=== PATIENT | male | born 1935 | race Two or more races ===

== ENCOUNTER 2024-10-24 16:29 | Emergency (ER) | payer BC, OTHER ==
[~2024-10-24] VITALS: Ht 162.6 cm; Wt 59.0 kg
--- NOTE | 2024-10-24 16:39 | ECG ---
[facility] Test Date: 2024-10-24 Test Time: 16:37:27 Pat Name: MISSY PENNY Department: ED Room: Gender: M Hematology Specialist: titus : [id number] Requested By: TRISHA HOU Order Number: [id number] Reading MD: Missy Alba Measurements Intervals [place] Rate: 41 P: 0 MD: 0 QRS: 70 QRSD: 165 T: 8 QT: 550 QTc: 455 Interpretive Statements Atrial fibrillation Right bundle branch block Inferior infarct, old Electronically Signed On 10-25-2024 12:16:58 PDT by Missy Alba Please click the below link to view image of tracing.
[2024-10-24 16:57] LABS: Basophils # (auto) 0 10 ^3/uL (0-0.2); Basophils % (auto) 0.5 % (0.0-2.0); Eosinophils # (auto) 0.1 10 ^3/uL (0-0.8); Eosinophils % (auto) 1.8 % (0.0-7.0); Hematocrit 25.4 % (41.0-53.0); Hemoglobin 8.2 g/dL (13.5-17.5); Lymphocytes # (auto) 1.2 10 ^3/uL (0.4-5.4); Lymphocytes % (auto) 24.6 % (10.0-50.0); Mean Corpuscular Hemoglobin 30.5 pg (28.0-32.0); Mean Corpuscular Hgb Conc. 32.4 g/dL (32.0-36.0); Mean Corpuscular Volume 94.1 fL (80.0-100.0); Monocytes # (auto) 0.6 10 ^3/uL (0-1.3); Monocytes % (auto) 11.7 % (0.0-12.0); Neutrophils # (auto) 2.9 10 ^3/uL (1.6-8.6); Neutrophils % (auto) 61.4 % (37.0-80.0); Platelet Count (auto) 257 10^3/uL (140-450); Red Cell Distribution Width 17.8 % (11.8-14.3); White Blood Cell 4.7 10^3/uL (4.4-10.8)
--- NOTE | 2024-10-24 16:58 | ED.PDOC ---
History of Present Illness HPI Comments 88 y.o male with PMHx of CAD, CT, HTN, hyperlipidemia, presents to the ED via EMS for an evaluation of generalized weakness. Patient reports initial weakness presented 2-3 months ago but for the past week has progressively worsened with new onset of SOB x 2-3 days. Patient mentions he had a fall one week ago, was seen at the ED yesterday in which staff found a lump on his left hip. Patient was discharged but was unsure of his diagnose then. Patient denies any nausea, vomiting, chest pain, Palpitations, recent falls. EMS reports HR read at 38, normally sits between 46-52. Patient was given IV fluids due to pale appearance on scene. Patient denies any social history. Chief Complaint: General Weakness Time Seen by MD: 16:29 Primary Care Provider: ML Peres Notes: Nurses Notes, Keyboard Teacher Notes, Medications, Allergies Allergies: Coded Allergies: NO KNOWN ALLERGIES (Unverified , 06/19/13) Information Source: Patient, Emergency Med Personnel Mode of Arrival: EMS Severity: Moderate Timing: Weeks (1) Duration: Since onset Past Medical History PAST MEDICAL HISTORY: CAD, High Lipids, HTN, CT Surgical History: Appendectomy Family History Family History: No family hx of Cancer, No family hx ofKidney lindsay Social History Smoker: Other Alcohol: Occasionally Drugs: Denies Drug Use Lives In: Home Constitutional: reports: weakness; denies: chills, diaphoresis, fatigue, fever, malaise, sweats, others EENTM: denies: blurred vision, double vision, ear bleeding, ear discharge, ear drainage, ear pain, ear ringing, eye pain, eye redness, hearing loss, mouth pain, mouth swelling, nasal discharge, nose bleeding, nose congestion, nose pain, photophobia, tearing, throat pain, throat swelling, voice changes, others Respiratory: reports: SOB at rest, shortness of breath, SOB with excertion; denies: cough, hemoptysis, orthopnea, stridor, wheezing, others Cardiovascular: denies: chest pain, dizzy spells, diaphoresis, Dyspnea on exertion, edema, irregular heart beat, left arm pain, lightheadedness, palpitations, PND, syncope, others Gastrointestinal: denies: abdomen distended, abdominal pain, blood streaked bowels, constipated, diarrhea, dysphagia, difficulty swallowing, hematemesis, melena, nausea, poor appetite, poor fluid intake, rectal bleeding, rectal pain, vomiting, others Genitourinary: denies: burning, dysuria, flank pain, frequency, hematuria, incontinence, penile discharge, penile sore, pain, testicle pain, testicle swelling, urgency, others Neurological: denies: dizziness, fainting, headache, left sided numbness, left sided weakness, numbness, paresthesia, pre-existing deficit, right sided numbness, right sided weakness, seizure, speech problems, tingling, tremors, weakness, others Musculoskeletal: denies: back pain, gout, joint pain, joint swelling, muscle pain, muscle stiffness, neck pain, others Integumetry: denies: bruises, change in color, change in hair/nails, dryness, laceration, lesions, lumps, rash, wounds, others Allergic/Immunocompromised: denies: Difficulty Healing, Frequent Infections, Hives, Itching, others Hematologic/Lymphatic: denies: anemia, blood clots, easy bleeding, easy bruising, swollen glands, others Endocrine: denies: excessive hunger, excessive sweating, excessive thirst, excessive urination, flushing, intolerance to cold, intolerance to heat, unexplained weight gain, unexplained weight loss, others Psychiatric: denies: anxiety, bipolar disorder, depression, hopeless, panic disorder, schizophrenia, sleepless, suicidal, others All Other Systems: Reviewed and Negative Physical Exam General Appearance: Moderate Distress HEENT: Pale Conjuntivae (L), Pale Conjuntivae (R), Pharynx Normal, TMs Normal Neck: Full Range of Motion, Non-Tender, Normal, Normal Inspection Respiratory: Chest Non-Tender, Lungs Clear, No Accessory Muscle Use, No Respiratory Distress, Normal Breath Sounds Cardiovascular: No Edema, No JVD, No Murmur, No Gallop, Normal Peripheral Pulses, Regular Rate/Rhythm Breast Exam: Deferred Gastrointestinal: No Organomegaly, Non Tender, No Pulsatile Mass, Normal Bowel Sounds, Soft Genitalia: Deferred Pelvic: Deferred Rectal: Deferred Extremities: No calf tenderness, Normal capillary refill, No pedal edema Musculoskeletal : Apperance: Normal Neurologic: disease intervention specialist II-XII nml as Tested, Motor Weakness, Normal Affect, Normal Mood, No Sensory Deficits Cerebellar Function: Unable to Test Reflexes: Normal Skin: Dry, Pallor, Warm Lymphatic: No Adenopathy Was a procedure done? Was a procedure done?: No EKG EKG : Pulse Rate (adult): 41 Cardiac Rhythm: Afib Block: RBBB Differential Dx Considerations may include: Sepsis, UTI, Dehydration, Infection, viral syndrome, Respiratory distress, Pneumonia, URI X-Ray, Labs, Meds, VS Vital Signs Date Time Temp Pulse Resp B/P (MAP) Pulse Ox O2 Delivery O2 Flow Rate FiO2 10/24/24 19:42 97.7 10/24/24 19:19 98.0 50 20 120/40 (66) 97 98.0 10/24/24 18:53 41 10/24/24 17:30 48 22 99 Nasal Cannula* 2 28 10/24/24 17:30 97.9 48 22 129/42 (71) 99 97.9 10/24/24 16:44 98.7 49 16 123/44 (70) 97 98.7 10/24/24 16:37 41 Lab Test 10/24/24 20:27 10/24/24 20:20 10/24/24 16:45 Range/Units Troponin I High Sensitivity Pending Pending Urine Color Pending Urine Clarity Pending Urine pH Pending Urine Specific [place] Pending Urine Protein Pending Urine Ketones Pending Urine Blood Pending Urine Nitrite Pending Urine Bilirubin Pending Urine Urobilinogen Pending Urine Leukocyte Esterase Pending Urine RBC Pending Urine Microscopic WBC Pending Urine Squamous Epithelial Cells Pending Urine Bacteria Pending Urine Glucose Pending White Blood Count 4.7 4.4-10.8 10^3/uL Red Blood Count 2.70 L 4.5-5.90 10^6/uL Hemoglobin 8.2 L 13.5-17.5 g/dL Hematocrit 25.4 L 41.0-53.0 % Mean Corpuscular Volume 94.1 80.0-100.0 fL Mean Corpuscular Hemoglobin 30.5 28.0-32.0 pg Mean Corpuscular Hemoglobin Concent 32.4 32.0-36.0 g/dL Red Cell Distribution Width 17.8 H 11.8-14.3 % Platelet Count 257 140-450 10^3/uL Mean Platelet Volume 7.9 6.9-10.8 fL Neutrophils (%) (Auto) 61.4 37.0-80.0 % Lymphocytes (%) (Auto) 24.6 10.0-50.0 % Monocytes (%) (Auto) 11.7 0.0-12.0 % Eosinophils (%) (Auto) 1.8 0.0-7.0 % Basophils (%) (Auto) 0.5 0.0-2.0 % Neutrophils # (Auto) 2.9 1.6-8.6 10 ^3/uL Lymphocytes # (Auto) 1.2 0.4-5.4 10 ^3/uL Monocytes # (Auto) 0.6 0-1.3 10 ^3/uL Eosinophils # (Auto) 0.1 0-0.8 10 ^3/uL Basophils # (Auto) 0 0-0.2 10 ^3/uL Nucleated Red Blood Cells 0.0 % D-Dimer, Quantitative 0.42 0.0-0.49 mg/L FEU Sodium Level 141 136-145 mmol/L Potassium Level 4.8 3.5-5.1 mmol/L Chloride Level 109 H 98-107 mmol/L Carbon Dioxide Level 22 20-31 mmol/L Anion Gap 10 5-15 Blood Urea Nitrogen 34 H 9-23 mg/dL Creatinine 1.92 H 0.700-1.30 mg/dL Glomerular Filtration Rate Calc 34 >90 mL/min BUN/Creatinine Ratio 17.7 10.0-20.0 Serum Glucose 115 H 74-106 mg/dL Lactic Acid Level 1.4 0.4-2.0 mmol/L Calcium Level 9.1 8.7-10.4 mg/dL B-Type Natriuretic Peptide 368.08 0-100 pg/mL Current Medications Medications (Trade) Dose Ordered Sig/Ann Route Start Time Stop Time Status Last Admin Acetaminophen (Tylenol Tablet) 650 mg ONCE ONCE PO 10/24/24 18:45 10/24/24 18:46 DC 10/24/24 18:42 CHEST RADIOGRAPH IMPRESSION: Left mid and lower lung zone linear atelectasis with possible small left-sided pleural effusion. The CBC shows anemia with a hemoglobin of 8.2 and hematocrit 25.4 The rest of the CBC is within normal limits The D-dimer is negative The BUN is 34 and the creatinine is 1.92 The BNP is 368.08 The lactic acid level is within normal limits At this time, the patient is being admitted to the hospitalist We are calling the [facility] physician as the patient continues to have generalized weakness We attempted to admit the patient but the [facility] physician has come in and did the final disposition on this patient It seems that she is discharged in the patient. Images Reviewed?: Images reviewed and evaluated by me Time of 1ST Reevaluation: 16:54 Reevaluation 1ST: Unchanged Patient Education/Counseling: Diagnosis, Treatment, Prognosis Family Education/Counseling: No Family Present Sepsis Sepsis Reasesment Focused Exam Orders: Laboratory Tests 10/24/24 16:45: Lactic Acid Level 1.4 Departure 1 Departure Time of Disposition: 18:43 Impression: Primary Impression: Generalized weakness Additional Impression: Anemia Qualified Codes: D64.9 - Anemia, unspecified Disposition: 09 ADMITTED INPATIENT Admit to: Med Surg Condition: Fair Critical Care Note Critical Care Time?: No Stability Stability form required: No Heart Score Heart Score: Heart Score Response (Comments) Value History N/A 0 EKG N/A 0 Age N/A 0 Risk Factors N/A 0 Troponin N/A 0 Total 0 I personally scribed for TRISHA HOU MD ([email or web address]) on 10/24/24 at 16:58. Electronically submitted by Zonia Pepper ([email or web address]). I personally scribed for TRISHA HOU MD ([email or web address]) on 10/24/24 at 18:53. Electronically submitted by Zonia Pepper ([email or web address]). TRISHA HOU MD October 24, 2024 16:58
[2024-10-24 17:19] LABS: Anion Gap 10 (5-15); Carbon Dioxide 22 mmol/L (20-31); Potassium 4.8 mmol/L (3.5-5.1); Sodium 141 mmol/L (136-145)
[2024-10-24 17:20] LABS: Calcium 9.1 mg/dL (8.7-10.4)
--- NOTE | 2024-10-24 17:21 | DVH ---
CHEST RADIOGRAPH Indication: sob Technique: Single frontal view of the chest was obtained Comparison: None FINDINGS: Lines and Tubes: None Lungs: Hazy opacification with linear densities of the left mid and lower lung zone and indistinctnes s of the left hemidiaphragm. No pneumothorax. Cardiomediastinal contours: Borderline cardiomegaly with moderate atherosclerotic calcification and u ncoiling of the aorta. Aortic valvular replacement is noted. Bones: No acute osseous abnormality. Old fracture deformity of the right distal clavicle. IMPRESSION: Left mid and lower lung zone linear atelectasis with possible small left-sided pleural effusion.
[2024-10-24 17:25] LABS: BUN/Creatinine Ratio 17.7 (10.0-20.0)
[2024-10-24 17:28] LABS: Blood Urea Nitrogen 34 mg/dL (9-23); Chloride 109 mmol/L (98-107); Glucose 115 mg/dL (74-106)
[2024-10-24 17:30] VITALS: PULSE 48; RESP 22; O2SAT 99
[2024-10-24] MEDS: ACETAMINOPHEN 325 MG TAB PO ONE (18:42)
[2024-10-24 19:30] VITALS: O2SAT 97
[2024-10-24 19:42] VITALS: TEMP 97.7
[2024-10-24 20:29] LABS: Urine Bacteria None Seen /hpf (None Seen)
[2024-10-24 20:47] LABS: Urine Blood Negative /uL (Negative); Urine Clarity Clear (Clear); Urine Color Colorless (Yellow); Urine Protein, UAD Negative (Negative); Urine Squamous Epithelial Cell None Seen /hpf (<5); Urine Urobilinogen Normal (Negative); Urine WBC 1 /HPF (0-3)
[2024-10-24 21:00] VITALS: BP 126/43; PULSE 53; RESP 20; O2SAT 96
[2024-10-24] MEDS: SOD CHL 0.45% 1,000 ML IV ONE (21:11)
--- NOTE | 2024-10-27 23:36 | DVHDS2 ---
Physician Discharge Progress N Final Diagnosis: Bladder tumor Operations or Procedures: Operations or Procedures none Other Interventions Other Interventions Lab results, EKG, CXR Consultations: Consultations case management Commentary: Commentary 88 y.o male with CAD, HTN, bladder tumor, s/p resection was brought to the ED c/o generalized weakness. Patient was in [facility] yesterday c/o right hip lump after a mechanical fall a week ago. CT (at [facility]) of the hip/leg showed no acute changes/hematoma. It did show a bladder tumor. Patient was discharged home after that. Patient denies any nausea, vomiting, chest pain, palpitations, new falls. Patient was anxious in ER. His daughter was at the bed side and she confirmed that the patient has been anxious for a long time and since she is the only caregiver, it has been very difficult for her to take care of her father days and nights. She further informed that his urologist did mention to them that even after resection, there might be recurrence of the bladder tumor. Patient daughter stated that the patient won't agree to be placed to SNF since he deman ds her presence most of the time and becomes very anxious if she is not there. She stated that hospice would be a better solution for the patient and would give her help to take care of him. She asked for home discharge and hospice consult next day at home. Condition on Discharge: Stable Disposition: Home SNF Discharge Will this Physician continue t: No Discharge Instructions: Diet: Cardiac 2g Na,low cholest Activity: No Restrictions, As Tolerated Follow Up/Referral: Hospice consult at home will be scheduled by [facility] case manager specialist Medications: Continue home medications Follow Up Care: Discharge Statement: "Patient was advised to return to the ER or call 911 if any headaches, dizziness, shortness of breath, chest pain, abdominal pain, bleeding, fevers, or worsening of medical condition. Patient was counseled about treatment plan, medications, possible side effects, patientverbalized understanding. All questions were answered to the best of my ability. This discharge took greater then 30 minutes in planning, reviewing documentat ion, counseling the patient, and discussing with other team members." SUE BERNABE MD October 27, 2024 23:36
== END 2024-10-24 22:10 | disposition home or self-care (01) ==
LOC: EDUNIT# 16:29 → ER 16:29 → EDBD 16:29 → ER 22:10
DX: D64.9 Anemia, unspecified (principal); R53.1 Weakness; I25.10 Atherosclerotic heart disease of native coronary artery without angina pectoris; E78.5 Hyperlipidemia, unspecified; I10 Essential (primary) hypertension; I25.2 Old myocardial infarction; F17.200 Nicotine dependence, unspecified, uncomplicated; Z90.49 Acquired absence of other specified parts of digestive tract
CPT/HCPCS: 36415; 71045; 80048; 81001; 83605; 83880; 84484; 85025; 85379; 87040; 93005